=== PATIENT | male | born 1995 | race Caucasian/White ===

== ENCOUNTER 2021-05-17 16:25 | Emergency (ER) | payer BC, MEDICAID ==
[~2021-05-17] VITALS: Ht 182.9 cm; Wt 83.9 kg
--- NOTE | 2021-05-17 16:30 | NUR ---
Patient to ER bed 7 to gown for evaluation. Side rails up. Report given to Babar ISAAC.
[2021-05-17 16:34] VITALS: BP_SYST 156
--- NOTE | 2021-05-17 16:35 | NUR ---
JAMES Vail at bedside examining patient.
--- NOTE | 2021-05-17 16:42 | NUR ---
PT arrives w/ home right knee pain 04/12. pt was runing and twisted his knee laterally.
[2021-05-17] MEDS ORDERED: IBUPROFEN 600 MG TABLET PO ONE (16:45)
--- NOTE | 2021-05-17 16:54 | NUR ---
RECEIVED AND TO ASSUME CARE, CALM, ALERT, RESP UNLABORED, SKIN WARM AND DRY
[2021-05-17] MEDS ORDERED: IBUP-1969 PO (17:23)
[2021-05-17 17:31] VITALS: BP_SYST 156
--- NOTE | 2021-05-17 17:32 | NUR ---
Patient given written and verbal discharge instructions and verbalizes understanding. ER MD discussed with patient the results and treatment provided. Patient in stable condition. ID arm band removed. Rx of IBUPROFEN given. Patient educated on pain management and to follow up with PMD. Pain Scale 3/10. Opportunity for questions provided and answered. Medication side effect fact sheet provided.
== END 2021-05-17 17:32 | disposition home or self-care (01) ==
LOC: SED 16:25
DX: S89.91XA Unspecified injury of right lower leg, initial encounter (principal); W01.0XXA Fall on same level from slipping, tripping and stumbling without subsequent striking against object, initial encounter; Y93.89 Activity, other specified; Y92.89 Other specified places as the place of occurrence of the external cause; Y99.8 Other external cause status
CPT/HCPCS: 73564; 99283

== ENCOUNTER 2021-12-20 16:35 | Emergency (ER) | payer BC, MEDICAID ==
[~2021-12-20] VITALS: Ht 182.9 cm; Wt 85.3 kg
[~2021-12-20 16:35] MED LIST: IBUP-1969 PO
[2021-12-20 16:56] VITALS: BP_SYST 129
[2021-12-20] MEDS ORDERED: IOHEXOL 350 mgI/mL, 150 ML INFUS..BTL IV ONE (17:45)
[2021-12-20] MEDS ORDERED: PROCHLORPERAZINE EDISYLATE 10 MG/2 ML VIAL IVP ONE (17:45)
[2021-12-20] MEDS ORDERED: DIPHENHYDRAMINE INJ 50 MG/ML VIAL IVP ONE (17:45)
[2021-12-20 18:23] LABS: CALCIUM 9.3 mg/dL (8.4-11.0); CREATININE 0.98 mg/dL (0.55-1.30); POTASSIUM 3.8 mmol/L (3.5-5.1)
[2021-12-20] MEDS ORDERED: PROC10TA13 PO (20:29)
[2021-12-20] MEDS ORDERED: IBUP-1969 PO (20:29)
[2021-12-20 20:44] VITALS: BP_SYST 120
== END 2021-12-20 20:45 | disposition home or self-care (01) ==
LOC: SED 16:35
DX: R51.9 Headache, unspecified (principal); Z79.899 Other long term (current) drug therapy
CPT/HCPCS: 36415; 70450; 70496; 70498; 76376; 80048; 96374; 96375; 99284; J0780; J1200; Q9967

== ENCOUNTER 2022-07-19 23:49 | Emergency (ER) | payer BC, MEDICAID ==
[~2022-07-19] VITALS: Ht 182.9 cm; Wt 88.5 kg
[~2022-07-19 23:49] MED LIST changes: +PROC10TA13 PO
[2022-07-20 00:01] VITALS: BP_SYST 146
--- NOTE | 2022-07-20 00:05 | NUR ---
PER PATIENT, STATES HE HAS HAD CHEST PAIN AND SOB X 1 DAY BUT NO CHEST PAIN AT THIS TIME. STATES ITS DIFFICULT TO BREATH
[2022-07-20 01:39] LABS: BASOPHILS % (AUTO) 0.5 % (0.0-2.0); EOSINOPHILS # (AUTO) 0.1 K/uL (0.0-0.4); EOSINOPHILS % (AUTO) 1.7 % (0.0-4.0); HEMATOCRIT 44.2 % (36-54); HEMOGLOBIN 15.2 g/dL (14.0-18.0); LYMPHOCYTES # (AUTO) 2.9 K/uL (1.0-5.5); LYMPHOCYTES % (AUTO) 40.2 % (20.5-51.5); MEAN CORPUSCULAR HEMOGLOBIN 29 pg (27-31); MEAN CORPUSCULAR HGB CONC 34 % (32-36); MEAN CORPUSCULAR VOLUME 83 fL (79.0-98.0); MONOCYTES % (AUTO) 13.3 % (1.7-9.3); NEUTROPHILS # (AUTO) 3.2 K/uL (1.8-7.7); NEUTROPHILS % (AUTO) 44.3 % (40.0-70.0); PLATELET COUNT (AUTO) 225 K/uL (130-430); RED CELL DISTRIBUTION WIDTH 13.2 % (9.0-15.0); WHITE BLOOD COUNT (AUTO) 7.2 K/uL (4.8-10.8)
[2022-07-20 02:02] LABS: ANION GAP 4 (5-15); CALCIUM 8.9 mg/dL (8.4-11.0); CHLORIDE 105 mmol/L (98-107); CREATININE 1.14 mg/dL (0.55-1.30); GLUCOSE 94 mg/dL (70-99); POTASSIUM 3.9 mmol/L (3.5-5.1); UREA NITROGEN, BLOOD 16 mg/dL (8-21)
[2022-07-20 02:07] LABS: ALANINE AMINOTRANSFERASE 35 U/L (12-78); ALBUMIN 3.9 g/dL (3.4-4.8); ASPARTATE AMINOTRANSFERASE 13 U/L (10-37); TOTAL BILIRUBIN 0.3 mg/dL (0.0-1.0)
[2022-07-20 02:08] LABS: GFR AFRICAN AMERICAN 101 mL/min (>90)
--- NOTE | 2022-07-20 03:37 | NUR ---
DR. MONROE AT BEDSIDE.
[2022-07-20 04:13] VITALS: BP_SYST 126
--- NOTE | 2022-07-20 04:14 | NUR ---
Patient given written and verbal discharge instructions and verbalizes understanding. ER MD DR. MARTINO discussed with patient the results and treatment provided. Patient in stable condition. ID arm band removed. Patient educated on pain management and to follow up with PMD. Pain Scale 0/10. Opportunity for questions provided and answered. Medication side effect fact sheet provided. PT IS AMBULATORY W/ STEADY GAIT.
== END 2022-07-20 04:13 | disposition home or self-care (01) ==
LOC: SED 23:49
DX: R06.02 Shortness of breath (principal); R07.9 Chest pain, unspecified; Z79.899 Other long term (current) drug therapy
CPT/HCPCS: 36415; 71045; 80053; 83880; 84484; 85025; 93005; 99285

== ENCOUNTER 2023-03-22 16:33 | Emergency (ER) | payer MEDICAID ==
[~2023-03-22] VITALS: Ht 180.3 cm; Wt 94.3 kg
[2023-03-22 16:35] VITALS: BP_SYST 132
--- NOTE | 2023-03-22 16:40 | NUR ---
Patient triaged and placed in waiting room. VSS and patient appears in no acute distress at this time. Accompanied by SELF, awaiting available bed, and MD notified of need for MSE.
[2023-03-22] MEDS ORDERED: ACETAMINOPHEN 500 MG TABLET PO ONE (18:00)
[2023-03-22] MEDS ORDERED: predniSONE 20 MG TABLET PO ONE (18:00)
[2023-03-22] MEDS ORDERED: methocarbamoL 500 MG TABLET PO ONE (18:00)
[2023-03-22] MEDS ORDERED: KETOROLAC TROMETHAMINE 15 MG VIAL IM ONE (18:00)
[2023-03-22] MEDS ORDERED: IBUP-1969 PO (18:14)
[2023-03-22] MEDS ORDERED: LIDO1ADH63 TP (18:14)
[2023-03-22] MEDS ORDERED: METH-634 PO (18:14)
[2023-03-22] MEDS ORDERED: PRED20TA PO (18:14)
--- NOTE | 2023-03-22 18:35 | NUR ---
Patient to ER CHAIR for evaluation.
[2023-03-22 18:44] VITALS: BP_SYST 118
--- NOTE | 2023-03-22 18:44 | NUR ---
Patient given written and verbal discharge instructions and verbalizes understanding. ER MD discussed with patient the results and treatment provided. Patient in stable condition. ID arm band removed. Rx of IBUPROFEN, LIDOCAINE,ROBAXIN, AND PREDNISONE given. Patient educated on pain management and to follow up with PMD. Pain Scale 0/10 Opportunity for questions provided and answered. Medication side effect fact sheet provided.
== END 2023-03-22 18:44 | disposition home or self-care (01) ==
LOC: SED 16:33
DX: S16.1XXA Strain of muscle, fascia and tendon at neck level, initial encounter (principal); R20.2 Paresthesia of skin; Z79.899 Other long term (current) drug therapy; X58.XXXA Exposure to other specified factors, initial encounter; Y93.89 Activity, other specified; Y92.89 Other specified places as the place of occurrence of the external cause; Y99.8 Other external cause status
CPT/HCPCS: 99284; 96372; J7512; J1885